=== PATIENT | female | born 2000 | race Caucasian/White ===

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

== ENCOUNTER 2021-06-22 10:12 | Emergency (ER) | payer OTHER ==
[~2021-06-22] VITALS: Ht 162.6 cm; Wt 89.4 kg
[2021-06-22] MEDS ORDERED: DEPO150I12 IM (10:22)
[2021-06-22] MEDS ORDERED: PRED20TA PO (11:49)
[2021-06-22 11:57] VITALS: BP 110/60
== END 2021-06-22 12:02 | disposition home or self-care (01) ==
LOC: M ED 10:12
DX: G89.29 Other chronic pain (principal); M54.50 Low back pain, unspecified; D64.9 Anemia, unspecified; J45.909 Unspecified asthma, uncomplicated; Z79.899 Other long term (current) drug therapy

== ENCOUNTER → 2021-08-25 | Outpatient (REF) ==
[~2021-08-25] MED LIST changes: +DEPO150I12 IM; -METHACHOLINE KIT (J7674) INH ONE; +PRED20TA PO
== END ==
LOC: M PLAIMG 11:11
PROVIDERS: ATTEND Internal Medicine
DX: R06.02 Shortness of breath (principal)

== ENCOUNTER 2021-10-12 12:16 | Emergency (ER) | payer OTHER ==
[~2021-10-12] VITALS: Ht 162.6 cm; Wt 92.2 kg
[2021-10-12] MEDS ORDERED: CEPH500C PO (16:30)
[2021-10-12 16:43] VITALS: BP 117/66
== END 2021-10-12 16:44 | disposition home or self-care (01) ==
LOC: M ED 12:16
DX: L60.0 Ingrowing nail (principal); J45.909 Unspecified asthma, uncomplicated; Z79.899 Other long term (current) drug therapy

== ENCOUNTER 2022-02-15 20:54 | Inpatient (IN) | payer OTHER ==
[~2022-02-15] VITALS: Ht 162.6 cm; Wt 82.5 kg
[~2022-02-15 20:54] MED LIST changes: +CEPH500C PO
[2022-02-15 21:58] LABS: HEMATOCRIT 39.8 % (36.0-47.0); HEMOGLOBIN 13.5 g/dl (12.0-15.5); MEAN CORPUSCULAR HEMOGLOBIN 27.7 pg (27.0-33.0); MEAN CORPUSCULAR HGB CONC 33.9 g/dl (32.0-36.5); MEAN CORPUSCULAR VOLUME 81.7 fl (80.0-96.0); PLATELET COUNT, AUTOMATED 365 10^3/uL (150-450); RED BLOOD COUNT 4.87 10^6/uL (4.00-5.40); WHITE BLOOD COUNT 6.9 10^3/uL (4.0-10.0)
[2022-02-15 22:22] LABS: HCG, SERUM QUALITATIVE NEGATIVE (NEGATIVE)
[2022-02-15 22:23] LABS: RSV AMPLIFICATION NEGATIVE (NEGATIVE)
[2022-02-15 22:38] LABS: AMPHETAMINES LEVEL URINE NEGATIVE (NEGATIVE); BARBITURATES URINE NEGATIVE (NEGATIVE); BENZODIAZEPINES URINE NEGATIVE (NEGATIVE); CANNABINOIDS URINE POSITIVE (NEGATIVE); COCAINE METABOLITE URINE NEGATIVE (NEGATIVE); METHADONE URINE NEGATIVE (NEGATIVE); OPIATES URINE NEGATIVE (NEGATIVE); PHENCYCLIDINE URINE NEGATIVE (NEGATIVE)
[2022-02-15 22:42] LABS: ACETAMINOPHEN LEVEL < 2.0 UG/ML (10.0-30.0); ALBUMIN 4.1 GM/DL (3.2-5.2); ALT/SGPT 34 U/L (12-78); BILIRUBIN,DIRECT 0.1 MG/DL (0.0-0.2); BILIRUBIN,TOTAL 0.6 MG/DL (0.2-1.0); BLOOD UREA NITROGEN 8 MG/DL (7-18); CALCIUM LEVEL 9.4 MG/DL (8.5-10.1); CARBON DIOXIDE LEVEL 23 MEQ/L (21-32); CHLORIDE LEVEL 104 MEQ/L (98-107); CREATININE FOR GFR 0.98 MG/DL (0.55-1.30); ETHYL ALCOHOL (ETHANOL) < 0.003 % (0.000-0.010); GLUCOSE, FASTING 86 MG/DL (70-100); POTASSIUM SERUM 4.1 MEQ/L (3.5-5.1); SALICYLATE LEVEL 2.7 MG/DL (5.0-30.0); SODIUM LEVEL 138 MEQ/L (136-145); TOTAL PROTEIN 8.2 GM/DL (6.4-8.2)
[2022-02-16] MEDS ORDERED: RA M10TA PO (01:21)
[2022-02-16] MEDS ORDERED: VITA1CHW7 PO (01:21)
[2022-02-16] MEDS ORDERED: ALBU8.5H INH (01:21)
[2022-02-16] MEDS ORDERED: HOME MED LIST COMPLETE! XX SCH (01:25)
[2022-02-16] MEDS ORDERED: MOM 30ML SUSPENSION UDC PO PRN (01:45)
[2022-02-16] MEDS ORDERED: OLANZapine ORAL DISINTEGRATING TAB 5MG PO PRN (01:45)
[2022-02-16] MEDS ORDERED: ACETAMINOPHEN TAB 650MG DOSE (2X325MG) PO PRN (01:45)
[2022-02-16] MEDS ORDERED: MAALOX 30 ML SUSP *UDC PO PRN (01:45)
[2022-02-16] MEDS ORDERED: LORazepam 2 MG/ML VIAL IM STA (02:44)
[2022-02-16] MEDS ORDERED: HALOPERIDOL 5MG/ML VIAL (J1630 PER 1) IM STA (02:44)
[2022-02-16] MEDS ORDERED: diphenhydrAMINE 50MG/ML VIAL (J1200) IM STA (02:44)
[2022-02-16] MEDS: NICOTINE 14 MG/24 HR TRANSDERMAL TD SCH (09:00)
[2022-02-16] MEDS: SERTRALINE HCL 50 MG TAB PO SCH (09:44)
[2022-02-16] MEDS ORDERED: ALBUTEROL 90 MCG/ACT 8GM HFA INHALER INH PRN (15:00)
[2022-02-16 16:18] VITALS: BP 129/76
[2022-02-17 06:46] VITALS: BP 142/71
[2022-02-17] MEDS: NICOTINE 14 MG/24 HR TRANSDERMAL TD SCH (09:00)
[2022-02-17] MEDS: SERTRALINE HCL 50 MG TAB PO SCH (09:47)
[2022-02-17 14:36] LABS: BLOOD UREA NITROGEN 11 MG/DL (7-18); CALCIUM LEVEL 9.3 MG/DL (8.5-10.1); CARBON DIOXIDE LEVEL 26 MEQ/L (21-32); CHLORIDE LEVEL 106 MEQ/L (98-107); CREATININE FOR GFR 0.84 MG/DL (0.55-1.30); GLUCOSE, FASTING 82 MG/DL (70-100); POTASSIUM SERUM 3.9 MEQ/L (3.5-5.1); SODIUM LEVEL 138 MEQ/L (136-145)
[2022-02-17 16:28] VITALS: BP 137/80
[2022-02-17] MEDS: traZODone 50 MG TAB PO PRN (23:51)
[2022-02-18 06:30] VITALS: BP 139/62
[2022-02-18] MEDS: NICOTINE 14 MG/24 HR TRANSDERMAL TD SCH (08:45)
[2022-02-18] MEDS: SERTRALINE HCL 50 MG TAB PO SCH (08:46)
[2022-02-18] MEDS: MULTIVITAMINS/MINERALS THERAP 1 TAB PO SCH (08:46)
[2022-02-18 16:24] VITALS: BP 136/73
[2022-02-18] MEDS: traZODone 50 MG TAB PO PRN (20:14)
[2022-02-19 06:20] VITALS: BP 148/77
[2022-02-19] MEDS: SERTRALINE HCL 50 MG TAB PO SCH (08:10)
[2022-02-19] MEDS: MULTIVITAMINS/MINERALS THERAP 1 TAB PO SCH (08:10)
[2022-02-19] MEDS: NICOTINE 14 MG/24 HR TRANSDERMAL TD SCH (08:11)
[2022-02-19 10:09] VITALS: BP 148/77
[2022-02-19] MEDS ORDERED: SERT50TA29 PO (11:44)
[2022-02-19] MEDS ORDERED: TRAZ-252 PO (11:44)
[2022-02-19] MEDS ORDERED: NICO14PA TD (11:44)
== END 2022-02-19 13:14 | disposition home or self-care (01) | DRG 885 ==
LOC: M ED 20:54 → M ED INP 02-16 01:45 → M PSY 02-16 02:15
PROVIDERS: ADMIT Psychiatry & Neurology Psychiatry; ATTEND Psychiatry & Neurology Psychiatry
DX: F33.1 Major depressive disorder, recurrent, moderate (principal); F43.9 Reaction to severe stress, unspecified; F60.89 Other specific personality disorders; F50.9 Eating disorder, unspecified; Z78.1 Physical restraint status; J45.909 Unspecified asthma, uncomplicated; M41.9 Scoliosis, unspecified; Z62.810 Personal history of physical and sexual abuse in childhood; Z63.0 Problems in relationship with spouse or partner; Z91.410 Personal history of adult physical and sexual abuse; Z20.822 Contact with and (suspected) exposure to COVID-19; Z79.899 Other long term (current) drug therapy; M54.9 Dorsalgia, unspecified